=== PATIENT | male | born 1950 | race Caucasian/White ===

== ENCOUNTER 2017-01-13 14:02 | Inpatient (IN) | payer MEDICARE, OTHER ==
[~2017-01-13] VITALS: Ht 180.3 cm; Wt 63.5 kg
[~2017-01-13 14:02] MED LIST: HABITROL 21 MG P1 EA TD; ZYPREXA10 MG PO
[2017-01-13 14:39] LABS: HEMOGLOBIN 13.4 gm/dl (14.0-17.5); RED BLOOD COUNT 4.6 M/UL (4.20-5.50); WHITE BLOOD COUNT 22.3 K/UL (4.5-11.0)
[2017-01-13 15:04] LABS: BUN/CREATININE RATIO 20 (0-10)
[2017-01-14] MEDS ORDERED: PROVENTIL HFA 61 INH INH (00:14)
[2017-01-14] MEDS ORDERED: VENTOLIN/PROVE0.5 ML INH (00:15)
[2017-01-14 04:50] LABS: RED BLOOD COUNT 3.8 M/UL (4.20-5.50)
[2017-01-14 05:00] LABS: BUN/CREATININE RATIO 21 (0-10)
[2017-01-15 05:43] LABS: HEMOGLOBIN 11.2 gm/dl (14.0-17.5); RED BLOOD COUNT 3.76 M/UL (4.20-5.50); WHITE BLOOD COUNT 18.5 K/UL (4.5-11.0)
[2017-01-15 05:58] LABS: BUN/CREATININE RATIO 28 (0-10)
[2017-01-16 07:56] LABS: WHITE BLOOD COUNT 16.1 K/UL (4.5-11.0)
[2017-01-16 07:59] LABS: RED BLOOD COUNT 4.17 M/UL (4.20-5.50)
[2017-01-16 08:03] LABS: BUN/CREATININE RATIO 29 (0-10)
[2017-01-17 04:03] LABS: HEMOGLOBIN 10.9 gm/dl (14.0-17.5); RED BLOOD COUNT 3.82 M/UL (4.20-5.50)
[2017-01-18 04:40] LABS: BUN/CREATININE RATIO 29 (0-10)
[2017-01-18 04:50] LABS: RED BLOOD COUNT 3.84 M/UL (4.20-5.50)
[2017-01-18 17:02] LABS: WHITE BLOOD COUNT 17.6 K/UL (4.5-11.0)
== END 2017-01-19 15:27 | DRG 178 ==
LOC: ER1 14:02 → M/S 16:28 → ZEROF 16:28 → M/S 22:48
PROVIDERS: Emergency Medicine; ADMIT Internal Medicine
DX: J69.0 Pneumonitis due to inhalation of food and vomit (principal); J96.11 Chronic respiratory failure with hypoxia; M48.54XA Collapsed vertebra, not elsewhere classified, thoracic region, initial encounter for fracture; J44.1 Chronic obstructive pulmonary disease with (acute) exacerbation; T38.0X5A Adverse effect of glucocorticoids and synthetic analogues, initial encounter; R73.9 Hyperglycemia, unspecified; Y92.230 Patient room in hospital as the place of occurrence of the external cause; R53.1 Weakness; F03.90 Unspecified dementia, unspecified severity, without behavioral disturbance, psychotic disturbance, mood disturbance, and anxiety; F20.9 Schizophrenia, unspecified; D64.9 Anemia, unspecified; I10 Essential (primary) hypertension; F41.9 Anxiety disorder, unspecified; Z87.891 Personal history of nicotine dependence; Z83.3 Family history of diabetes mellitus; Z80.41 Family history of malignant neoplasm of ovary; Z79.899 Other long term (current) drug therapy; Z79.51 Long term (current) use of inhaled steroids
CPT/HCPCS: 36415; 36600; 71010; 71020; 71250; 72128; 80048; 80053; 81001; 82550; 82553; 82803; 83605; 83735; 83874; 84484; 85025; 85027; 87040; 87086; 93005; 94640; 94664; 96374; 96375; 97116; 97530; 97535; 99285; J0295; J0456; J0696; J1650; J1956; J2270; J2920; J2930; J7030; J7050

== ENCOUNTER 2021-04-07 12:23 | Inpatient (IN) | payer MEDICARE, OTHER ==
[~2021-04-07] VITALS: Ht 180.3 cm; Wt 78.0 kg
[~2021-04-07 12:23] MED LIST changes: +ALBUTEROL1.25 MG/3 INH; +ANORO ELLIPTA1 EACH INH; +ASPIRIN81 MG PO; +ATORVASTATIN CA20 MG PO; +BUSPAR 5MG TABLE5 MG PO; +CARDIZEM LA120 MG PO; +CLOPIDOGREL75 MG PO; +COMBIVENT0.074 GM/I INH; +DULERA 200 MCG8.8 GM INH; +KLONOPIN TAB 00.5 MG PO; +LEVOFLOXACIN500 MG PO; +OMNICEF 300 MG300 MG PO; +PROAIR HFA8.5 GM INH; +PROVENTIL HFA 61 INH INH; +SPIRIVA HANDIH18 MCG INH; +TYLENOL EXTRA500 MG PO; +VENTOLIN/PROVE0.5 ML INH
[2021-04-07 13:20] LABS: HEMOGLOBIN 13.8 gm/dl (14.0-17.5); RED BLOOD COUNT 4.49 M/UL (4.20-5.50)
[2021-04-07 14:07] LABS: BUN/CREATININE RATIO 20 (0-10)
[2021-04-07] MEDS ORDERED: PULMICORT0.5 MG/2 M INH (16:36)
[2021-04-07] MEDS ORDERED: BROVANA15 MCG/2 M INH (16:37)
[2021-04-07] MEDS ORDERED: IPRAT-ALBUT 0.5-3 ML INH (16:38)
[2021-04-07] MEDS ORDERED: LIPITOR40 MG PO (16:39)
[2021-04-07] MEDS ORDERED: KLONOPIN0.5 MG PO (16:40)
[2021-04-07] MEDS ORDERED: LOPRESSOR 25 MG25 MG PO (16:41)
[2021-04-07] MEDS ORDERED: ZESTRIL2.5 MG PO (16:42)
[2021-04-07] MEDS ORDERED: DOCUSATE CALCI240 MG PO (16:42)
[2021-04-07] MEDS ORDERED: ARTIFICIAL TEAR15 ML EYEBOTH (16:50)
[2021-04-07] MEDS ORDERED: BISACODYL10 MG PR (16:51)
[2021-04-07] MEDS ORDERED: LACTULOSE10 GM/15 M PO (16:51)
[2021-04-07] MEDS ORDERED: PROAIR HFA8.5 GM INH (16:52)
[2021-04-08 05:44] LABS: HEMOGLOBIN 12.1 gm/dl (14.0-17.5); WHITE BLOOD COUNT 15.4 K/UL (4.5-11.0)
[2021-04-08 05:47] LABS: RED BLOOD COUNT 4.04 M/UL (4.20-5.50)
[2021-04-09 07:58] LABS: HEMOGLOBIN 11.4 gm/dl (14.0-17.5); RED BLOOD COUNT 3.85 M/UL (4.20-5.50); WHITE BLOOD COUNT 13.4 K/UL (4.5-11.0)
[2021-04-10 06:44] LABS: WHITE BLOOD COUNT 11.3 K/UL (4.5-11.0)
[2021-04-10 06:46] LABS: RED BLOOD COUNT 4.27 M/UL (4.20-5.50)
[2021-04-10] MEDS ORDERED: AUGMENTIN 875-1 EACH PO (12:14)
[2021-04-10] MEDS ORDERED: PREDNISONE 20 M20 MG PO (12:14)
== END 2021-04-10 17:10 | DRG 871 ==
LOC: ER1 12:23 → CDU 14:40 → M/S 14:40
PROVIDERS: Emergency Medicine; Physician Assistant; ADMIT Internal Medicine Infectious Disease
DX: A41.9 Sepsis, unspecified organism (principal); G93.41 Metabolic encephalopathy; J18.9 Pneumonia, unspecified organism; J96.21 Acute and chronic respiratory failure with hypoxia; J96.22 Acute and chronic respiratory failure with hypercapnia; J44.0 Chronic obstructive pulmonary disease with (acute) lower respiratory infection; N17.9 Acute kidney failure, unspecified; E87.1 Hypo-osmolality and hyponatremia; J44.1 Chronic obstructive pulmonary disease with (acute) exacerbation; I50.22 Chronic systolic (congestive) heart failure; Z20.822 Contact with and (suspected) exposure to COVID-19; F20.9 Schizophrenia, unspecified; I11.0 Hypertensive heart disease with heart failure; F41.9 Anxiety disorder, unspecified; F32.9 Major depressive disorder, single episode, unspecified; R53.83 Other fatigue; E78.5 Hyperlipidemia, unspecified; F03.90 Unspecified dementia, unspecified severity, without behavioral disturbance, psychotic disturbance, mood disturbance, and anxiety; D64.9 Anemia, unspecified; K59.00 Constipation, unspecified; Z66 Do not resuscitate; Z79.899 Other long term (current) drug therapy; Z87.891 Personal history of nicotine dependence; Z83.3 Family history of diabetes mellitus; Z82.49 Family history of ischemic heart disease and other diseases of the circulatory system
CPT/HCPCS: 36600; 70450; 71045; 71250; 80053; 81001; 82550; 82553; 82803; 83605; 83690; 83735; 83874; 83880; 84484; 85025; 85610; 85730; 87040; 87086; 93005; 94640; 94664; 94760; 96374; 99285; J0692; J1644; J2543; J2920; J3370; J7070; U0002

== ENCOUNTER 2021-05-12 19:16 | Inpatient (IN) | payer MEDICARE, OTHER ==
[~2021-05-12] VITALS: Ht 180.3 cm; Wt 74.2 kg
[~2021-05-12 19:16] MED LIST changes: +ARTIFICIAL TEAR15 ML EYEBOTH; +AUGMENTIN 875-1 EACH PO; +BISACODYL10 MG PR; +BROVANA15 MCG/2 M INH; +DOCUSATE CALCI240 MG PO; +IPRAT-ALBUT 0.5-3 ML INH; +KLONOPIN0.5 MG PO; +LACTULOSE10 GM/15 M PO; +LIPITOR40 MG PO; +LOPRESSOR 25 MG25 MG PO; +PREDNISONE 20 M20 MG PO; +PULMICORT0.5 MG/2 M INH; +ZESTRIL2.5 MG PO
[2021-05-12 20:07] LABS: HEMOGLOBIN 10.9 gm/dl (14.0-17.5); RED BLOOD COUNT 3.79 M/UL (4.20-5.50); WHITE BLOOD COUNT 17.8 K/UL (4.5-11.0)
[2021-05-12 20:38] LABS: BUN/CREATININE RATIO 14 (0-10)
[2021-05-12 20:42] LABS: BORDETELLA PARAPERTUSSIS Not Detected (Not Detectd); BORDETELLA PERTUSSIS Not Detected (Not Detectd); CHLAMYDIA PNEUMONIAE Not Detected (Not Detectd); CORONAVIRUS HKU1 Not Detected (Not Detectd); CORONAVIRUS NL63 Not Detected (Not Detectd); CORONAVIRUS OC43 Not Detected (Not Detectd); CORONOAVIRUS 229E Not Detected (Not Detectd); HUMAN METAPNEUMOVIRUS Not Detected (Not Detectd); HUMAN RHINOVIRUS/ENTEROVIRUS Not Detected (Not Detectd); INFLUENZA A Not Detected (Not Detectd); INFLUENZA B Not Detected (Not Detectd); MYCOPLASMA PNEUMONIAE Not Detected (Not Detectd); PARAINFLUENZA VIRUS 1 Not Detected (Not Detectd); PARAINFLUENZA VIRUS 2 Not Detected (Not Detectd); PARAINFLUENZA VIRUS 3 Not Detected (Not Detectd); PARAINFLUENZA VIRUS 4 Not Detected (Not Detectd); RESPIRATORY SYNCYTIAL VIRUS Not Detected (Not Detectd)
[2021-05-12 21:42] LABS: SARS-CoV-2 NOT DETECTED (Not Detectd)
[2021-05-13 06:22] LABS: BUN/CREATININE RATIO 16 (0-10)
[2021-05-13 06:34] LABS: HEMOGLOBIN 9.4 gm/dl (14.0-17.5); RED BLOOD COUNT 3.3 M/UL (4.20-5.50); WHITE BLOOD COUNT 14.2 K/UL (4.5-11.0)
[2021-05-13] MEDS ORDERED: MEGESTROL400 MG/12 PO (11:18)
[2021-05-13] MEDS ORDERED: ARFORMOTER15 MCG/2 M INH (11:18)
[2021-05-13] MEDS ORDERED: LACTULOSE10 GM/15 M PO (11:19)
[2021-05-13] MEDS ORDERED: ALBUTEROL2.5 MG/3 M INH (11:20)
[2021-05-13] MEDS ORDERED: ACETAMINOPHEN500 MG PO (11:20)
[2021-05-13] MEDS ORDERED: ALOE VERA237 ML TP (11:24)
[2021-05-14 05:36] LABS: RED BLOOD COUNT 3.13 M/UL (4.20-5.50)
[2021-05-14 05:43] LABS: WHITE BLOOD COUNT 8.9 K/UL (4.5-11.0)
[2021-05-14 05:58] LABS: BUN/CREATININE RATIO 20 (0-10)
[2021-05-14 11:07] LABS: ACINETOBACTER BAUMANNII Not Detected (Negative); CANDIDA ALBICANS Not Detected (Negative); CANDIDA KRUSEI Not Detected (Negative); CANDIDA TROPICALIS Not Detected (Negative); ENTEROCOCCUS Not Detected (Negative); ESCHERICHIA COLI Not Detected (Negative); HAEMOPHILUS INFLUENZAE Not Detected (Negative); KLEBSIELLA OXYTOCA Not Detected (Negative); KLEBSIELLA PNEUMONIAE Not Detected (Negative); KPC-CARBAPENEM-RESISTANCE GENE Not Detected (Negative); PROTEUS Not Detected (Negative); PSEUDOMONAS AERUGINOSA Not Detected (Negative); SERRATIA MARCESANS Not Detected (Negative); STAPHYLOCOCCUS AUREUS Not Detected (Negative); STREP AGALACTIAE (GROUP B) Not Detected (Negative); STREP PYOGENES (GROUP A) Not Detected (Negative); STREPTOCOCCUS Not Detected (Negative); vanA/B (VANCOMYCIN RESIST GENE Not Detected (Negative)
[2021-05-14 12:23] LABS: STAPHYLOCOCCUS DETECTED (Negative); mecA (METHICILLIN RESIST GENE DETECTED (Negative)
[2021-05-15] MEDS ORDERED: AUGMENTIN 875-1 EACH PO (08:57)
[2021-05-15] MEDS ORDERED: PREDNISONE10 MG PO (08:57)
== END 2021-05-15 19:00 | DRG 193 ==
LOC: ER1 19:16 → MED SURG 4 22:32 → CDU 22:32 → MED SURG 4 22:32
PROVIDERS: Internal Medicine; Nurse Practitioner; ADMIT Internal Medicine
PROC: 8E0ZXY6 Isolation (ICD-10-PCS; principal; 2021-05-13)
DX: J18.9 Pneumonia, unspecified organism (principal); J96.21 Acute and chronic respiratory failure with hypoxia; Z20.822 Contact with and (suspected) exposure to COVID-19; Z66 Do not resuscitate; J44.1 Chronic obstructive pulmonary disease with (acute) exacerbation; I50.22 Chronic systolic (congestive) heart failure; E44.0 Moderate protein-calorie malnutrition; J44.0 Chronic obstructive pulmonary disease with (acute) lower respiratory infection; I11.0 Hypertensive heart disease with heart failure; F41.9 Anxiety disorder, unspecified; F32.9 Major depressive disorder, single episode, unspecified; D63.8 Anemia in other chronic diseases classified elsewhere; F20.9 Schizophrenia, unspecified; F03.90 Unspecified dementia, unspecified severity, without behavioral disturbance, psychotic disturbance, mood disturbance, and anxiety; K59.09 Other constipation; F17.210 Nicotine dependence, cigarettes, uncomplicated; Z68.22 Body mass index [BMI] 22.0-22.9, adult
CPT/HCPCS: 36415; 36600; 51702; 71045; 80048; 80053; 80202; 81001; 82140; 82550; 82553; 82728; 82803; 83605; 83735; 83874; 83880; 84484; 85025; 85379; 86140; 87040; 87077; 87150; 87186; 87633; 93005; 94640; 94664; 94668; 94760; 96365; 96366; 96372; 96375; 96376; 97162; 97167; 99285; C9113; G0378; J0692; J1650; J2920; J3370; J7050; J7070

== ENCOUNTER 2021-10-03 13:28 | Inpatient (IN) | payer MEDICARE, OTHER ==
[~2021-10-03] VITALS: Ht 180.3 cm; Wt 74.2 kg
[~2021-10-03 13:28] MED LIST changes: +ACETAMINOPHEN500 MG PO; +ALBUTEROL2.5 MG/3 M INH; +ALOE VERA237 ML TP; +ARFORMOTER15 MCG/2 M INH; +MEGESTROL400 MG/12 PO; +PREDNISONE10 MG PO
[2021-10-03 14:11] LABS: HEMOGLOBIN 9.9 gm/dl (14.0-17.5); RED BLOOD COUNT 3.4 M/UL (4.20-5.50); WHITE BLOOD COUNT 15.8 K/UL (4.5-11.0)
[2021-10-03 14:40] LABS: BUN/CREATININE RATIO 20 (0-10)
[2021-10-03] MEDS ORDERED: PROAIR HFA8.5 GM INH (18:00)
[2021-10-03] MEDS ORDERED: MIRTAZAPINE15 MG PO (18:00)
[2021-10-03] MEDS ORDERED: DONEPEZIL HCL5 MG PO (18:00)
[2021-10-03] MEDS ORDERED: OLANZAPINE10 MG PO (18:01)
[2021-10-03] MEDS ORDERED: FORMOTEROL20 MCG/2 M INH (18:02)
[2021-10-04 05:34] LABS: HEMOGLOBIN 10.3 gm/dl (14.0-17.5); RED BLOOD COUNT 3.61 M/UL (4.20-5.50)
[2021-10-04 05:43] LABS: BUN/CREATININE RATIO 26 (0-10)
[2021-10-04 06:07] LABS: WHITE BLOOD COUNT 5.3 K/UL (4.5-11.0)
[2021-10-05 04:24] LABS: HEMOGLOBIN 10.5 gm/dl (14.0-17.5); RED BLOOD COUNT 3.76 M/UL (4.20-5.50)
[2021-10-05 04:31] LABS: WHITE BLOOD COUNT 8.5 K/UL (4.5-11.0)
[2021-10-05] MEDS ORDERED: KLONOPIN0.5 MG PO (15:08)
[2021-10-06] MEDS ORDERED: DECADRON6 MG PO (12:26)
--- NOTE | 2021-10-06 19:43 | NUR ---
CALLED DR BAUTISTA AND LEFT MESSAGE FOR HER ABOUT PTS LACTIC ACID AND KIDNEY FUNCTION LAB TESTS. SUGGESTED FLUIDS BUT WILL AWAIT HER CALL AND ORDERS.
[2021-10-07 06:46] LABS: HEMOGLOBIN 10.9 gm/dl (14.0-17.5); RED BLOOD COUNT 3.86 M/UL (4.20-5.50); WHITE BLOOD COUNT 5.8 K/UL (4.5-11.0)
[2021-10-07 06:53] LABS: BUN/CREATININE RATIO 36 (0-10)
== END 2021-10-07 19:40 | DRG 871 ==
LOC: ER1 13:28 → CDU 16:06 → PROG CARE 16:06 → MED SURG 4 10-06 15:10
PROVIDERS: Family Medicine; Internal Medicine; ADMIT Internal Medicine
PROC: 8E0ZXY6 Isolation (ICD-10-PCS; principal; 2021-10-03)
PROC: XW033E5 Introduction of Remdesivir Anti-infective into Peripheral Vein, Percutaneous Approach, New Technology Group 5 (ICD-10-PCS; 2021-10-03)
PROC: 3E0333Z Introduction of Anti-inflammatory into Peripheral Vein, Percutaneous Approach (ICD-10-PCS; 2021-10-03)
PROC: 3E03329 Introduction of Other Anti-infective into Peripheral Vein, Percutaneous Approach (ICD-10-PCS; 2021-10-03)
PROC: 5A09557 Assistance with Respiratory Ventilation, Greater than 96 Consecutive Hours, Continuous Positive Airway Pressure (ICD-10-PCS; 2021-10-03)
PROC: B24BZZZ Ultrasonography of Heart with Aorta (ICD-10-PCS; 2021-10-05)
DX: A41.9 Sepsis, unspecified organism (principal); U07.1 COVID-19; R65.21 Severe sepsis with septic shock; J12.82 Pneumonia due to coronavirus disease 2019; J96.21 Acute and chronic respiratory failure with hypoxia; I50.23 Acute on chronic systolic (congestive) heart failure; J96.22 Acute and chronic respiratory failure with hypercapnia; J15.9 Unspecified bacterial pneumonia; E87.2 Acidosis; J43.9 Emphysema, unspecified; F03.90 Unspecified dementia, unspecified severity, without behavioral disturbance, psychotic disturbance, mood disturbance, and anxiety; R73.9 Hyperglycemia, unspecified; T38.0X5A Adverse effect of glucocorticoids and synthetic analogues, initial encounter; Z66 Do not resuscitate; J84.10 Pulmonary fibrosis, unspecified; F32.A Depression, unspecified; F20.9 Schizophrenia, unspecified; F41.9 Anxiety disorder, unspecified; R53.81 Other malaise; I11.0 Hypertensive heart disease with heart failure; Z79.4 Long term (current) use of insulin; Z79.899 Other long term (current) drug therapy; Z99.81 Dependence on supplemental oxygen
CPT/HCPCS: ECHO; 36415; 36600; 71045; 80048; 80053; 82550; 82553; 82803; 82962; 83036; 83605; 83735; 83880; 84484; 85025; 85027; 86140; 87040; 93005; 93306; 94660; 94664; 94760; 96374; 96375; 99285; J0248; J1100; J1650; J2543; J2930; J7030; U0002